=== PATIENT | female | born 2000 | race Asian ===

== ENCOUNTER 2025-03-21 11:43 | Emergency (ER) | payer OTHER, SELFPAY ==
[2025-03-21 11:45] VITALS: BP 106/69; PULSE 80; RESP 16; TEMP 36.4; O2SAT 100; BMI 18.1
[2025-03-21 12:25] LABS: UR Morphine/Opiate cutoff 300 Negative (Negative); Ur Creatinine Normal (Normal); Ur Specific Gravity Normal (Normal); Urine Amphetamines Negative (Negative); Urine Barbiturates Negative (Negative); Urine Benzodiazepines Negative (Negative); Urine Cocaine Negative (Negative); Urine MDMA Negative (Negative); Urine Methadone Negative (Negative); Urine Methamphetamines Negative (Negative); Urine Oxycodone Negative (Negative); Urine Phencyclidine Negative (Negative); Urine Tetrahydrocannabinol Negative (Negative); Urine Tricyclic Antidepressant Negative (Negative); Urine pH Normal (Normal)
[2025-03-21 12:26] LABS: Urine Volume 10mL (spun)
[2025-03-21 12:27] LABS: Add Manual Diff / Slide Review NO; Basophils Absolute Auto 100 /uL (0-100); Basophils Percent Auto 0.9 % (0-2); Eosinophils Absolute Auto 0 /uL (0-450); Eosinophils Percent Auto 0.4 % (2-4); Hematocrit 43.3 % (36-46); Hemoglobin 14.9 g/dL (12.0-16.0); Lymphocytes Absolute Auto 2000 /uL (1100-4500); Lymphocytes Percent Auto 33.1 % (25-40); Mean Corpuscular HGB Conc 34.4 % (30-36); Mean Corpuscular Hemoglobin 30.3 PG (26-34); Mean Corpuscular Volume 88.2 fL (80-100); Monocytes Absolute Auto 200 /uL (0-900); Monocytes Percent Auto 3.8 % (3-14); Neutrophils Absolute Auto 3700 /uL (1500-7000); Neutrophils Percent Auto 61.8 % (50-75); Platelet Count 354 X10^3/uL (150-400); Red Blood Cell Count 4.91 X10^6/uL (4.0-5.2); Red Cell Distribution Width 12.5 % (11.6-14.8)
[2025-03-21 12:29] LABS: Bacteria Urine None Seen; RBC Urine 0-1/HPF (0-5/HPF); Squamous Epithelial Cell Urine 0-1 /HPF (0-5/HPF); WBC Urine None Seen (0-5/HPF)
[2025-03-21 12:30] LABS: Culture Indicated Urine Cult Not Indicated
--- NOTE | 2025-03-21 12:31 | ED_ITS ---
HPI - Psych General Chief Complaint: Psychiatric Symptoms Stated Complaint: SI Time Seen by Provider: 03/21/25 12:21 Source: patient Mode of arrival: EMS History of Present Illness HPI Narrative: 24-year-old female history of PCOS presents with evaluation for possible suicidal attempt after taking 5 Vistaril pills last evening as she is currently under stress for being accused of being a spy in the [place]. Patient reports having difficulty sleeping and the instructions on the bottle is to take maximal of 3 and she took 5. She states that ever since she was accused of being us by a few months ago after being interrogated in a small room she has been having trouble sleeping and has been binge eating. Patient denies wanting to hurt anybody or seeing things or hearing voices. She has never been hospitalized for any mental health disorder in the past. Other than what is stated 14 point review of system is negative. Related Data Allergies Allergy/AdvReac Type Severity Reaction Status Date / Time No Known Drug Allergies Allergy Verified 03/21/25 11:55 Review of Systems Review of Systems ROS Unobtainable: All systems reviewed & are unremarkable except as noted in HPI and below Patient History Social History Smoking Status: Current some day smoker Smoking Status: Current some day smoker tobacco type: vaping Exam Narrative Exam Narrative: GENERAL: [24] year old patient appears stated age. Well-developed patient, in mild distress. HEAD: Atraumatic. Normocephalic. EYES: Pupils equal round and reactive. Extraocular motions intact. No scleral icterus. No injection or drainage. ENT: Nose without bleeding, purulent drainage. Throat without erythema, tonsillar hypertrophy or exudate. Airway patent. NECK: Trachea midline. Non tender CARDIOVASCULAR: Regular rate and rhythm without murmurs, gallops, or rubs. RESPIRATORY: Clear to auscultation. Breath sounds equal bilaterally. No wheezes, rales, or rhonchi. GASTROINTESTINAL: Abdomen soft, non-tender, nondistended. EXTREMITIES: No edema or joint tenderness. BACK: Nontender without deformity or crepitance. No flank tenderness. NEURO: AOx3. SKIN: No rash or erythema of visible areas Initial Vital Signs Initial Vital Signs: Vital Signs Temperature 97.6 F 03/21/25 11:45 Pulse Rate 80 03/21/25 11:45 Respiratory Rate 16 03/21/25 11:45 Blood Pressure 106/69 03/21/25 11:45 Pulse Oximetry 100 03/21/25 11:45 Oxygen Delivery Method Room Air 03/21/25 11:45 Psych Appearance: grossly normal Mental Status: mental status grossly normal Speech and Movement: speech and movement normal Affect: sad Attitude: cooperative Thought Process: normal Thought Content: suicidality Judgment: poor Course Orders Ordered: ED Orders 03/21/25 11:55 Consult to INDUSTRIAL [employer] MANAGER - Box Toe Flanger [place] Stat 03/21/25 12:00 Urine Drug Screen, Rapid Stat Urine Microscopic Stat 03/21/25 12:13 EKG-12 Lead Stat 03/21/25 12:20 Acetaminophen Stat Complete Blood Count AUTO DIFF Stat Comprehensive Metabolic Panel Stat Ethanol (ETOH) Stat Free T4, Direct Thyroxine Stat Salicylate Stat Thyroid Stimulating Hormone Stat Vital Signs Vital signs: Vital Signs - 8 hr 03/21/25 11:45 Temperature 97.6 F Pulse Rate 80 Respiratory Rate 16 Blood Pressure 106/69 Pulse Oximetry 100 Oxygen Delivery Method Room Air MDM - Psych Lab Data 03/21/25 12:20 03/21/25 12:20 Labs: Lab Results 03/21/25 03/21/25 Range/Units 12:00 12:20 WBC 6.0 (4.5-11.0) X10^3/uL RBC 4.91 (4.0-5.2) X10^6/uL Hgb 14.9 (12.0-16.0) g/dL Hct 43.3 (36-46) % MCV 88.2 (80-100) fL MCH 30.3 (26-34) PG MCHC 34.4 (30-36) % RDW 12.5 (11.6-14.8) % Plt Count 354 (150-400) X10^3/uL Neut % (Auto) 61.8 (50-75) % Lymph % (Auto) 33.1 (25-40) % [place] % (Auto) 3.8 (3-14) % Eos % (Auto) 0.4 L (2-4) % Baso % (Auto) 0.9 (0-2) % Neut # (Auto) 3700 (8056-1225) /uL Lymph # (Auto) 2000 (1242-0373) /uL [place] # (Auto) 200 (0-900) /uL Eos # (Auto) 0 (0-450) /uL Baso # (Auto) 100 (0-100) /uL Sodium 137 (137-145) mmol/L Potassium 3.6 (3.4-5.1) mmol/L Chloride 101 (98-107) mmol/L Carbon Dioxide 23 (22-32) mmol/L BUN 17 (7-17) mg/dL Creatinine 0.87 (0.52-1.04) mg/dL Estimated GFR > 60 (>60) mL/min BUN/Creatinine Ratio 19.5 (6-22) Glucose 85 (70-99) mg/dL Calcium 9.8 (8.4-10.2) mg/dL Total Bilirubin 0.9 (0.2-1.3) mg/dL AST 44 H (14-36) IU/L ALT 41 H (<35) IU/L Alkaline Phosphatase 42 (38-126) U/L Total Protein 8.7 H (6.3-8.2) g/dL Albumin 5.1 H (3.5-5.0) g/dL Globulin 3.6 (1.7-4.1) g/dL Albumin/Globulin Ratio 1.4 (1.0-2.8) TSH 1.52 (0.47-4.68) uIU/mL Free T4 1.25 (0.78-2.19) ng/dL Urine RBC 0-1/hpf (0-5/HPF) Urine WBC None seen (0-5/HPF) Ur Squamous Epith Cells 0-1 /hpf (0-5/HPF) Urine Bacteria None seen (None) Ur Culture Indicated? Cult not indicated Vol Urine Centrifuged 10ml (spun) Salicylates < 1.0 (<20) mg/dL U Opiates 300ng/mL cut Negative (Negative) Ur Oxycodone Screen Negative (Negative) Urine Methadone Screen Negative (Negative) Acetaminophen < 10 (10-30) ug/mL Ur Barbiturates Screen Negative (Negative) U Tricyclic Antidepress Negative (Negative) Ur Phencyclidine Scrn Negative (Negative) Ur Amphetamines Screen Negative (Negative) U Methamphetamines Scrn Negative (Negative) Ur MDMA Scrn (Ecstasy) Negative (Negative) U Benzodiazepines Scrn Negative (Negative) Urine Cocaine Screen Negative (Negative) U Marijuana (THC) Screen Negative (Negative) Urine pH Normal (Normal) Urine Specific [place] Normal (Normal) Ethyl Alcohol < 10 ( - 10) mg/dL Ur Creatinine Normal (Normal) Point of Care Testing Test Results Negative Urine Dip Bedside Urine Glucose Negative Bedside Urine Bilirubin - Negative Bedside Urine Ketone + 15 Urine Specific [place] 1.005 Bedside Urine Occult Blood + Bedside Urine pH 6.0 Bedside Urine Protein - Negative Bedside Urine Urobilinogen - Negative Bedside Urine Nitrite - Negative Bedside Urine Leukocytes - Negative Esterase ECG Data Attestation: I personally reviewed and interpreted this ECG as follows: Interpretation: NSR HR 73 OH 150 QRS [address]-t wave change No previous EKG to compare against MDM Narrative Medical decision making narrative: All lab work, vital signs, nurse triage note, medication list, and all previous ER visits reviewed. Patient is medically cleared and stable for transfer after speaking with who has graciously accepted pt for transfer. Differential diagnosis includes suicidal attempt, ideation, anxiety, depression, PTSD, stress disorder. Discharge Plan Departure Patient Disposition: Xfer Psychiatric Hosp Clinical Impression: Suicidal ideation Referrals: ProviderKristin [Primary Care Provider] -
--- NOTE | 2025-03-21 12:34 | CM.SWNOTE ---
ED TRIMMER AND REINFORCER Assessment TRIMMER AND REINFORCER - Financial Planning Adviser Assessment TRIMMER AND REINFORCER/Financial Planning Adviser Assessment Time Spent with Patient Start date 03/21/25 Visit Start Time 11:40 End date 03/21/25 Visit End Time 11:55 Total time Care Management spent on 15 minutes patient visit-in minutes Mental Health Screening Include Onset, Duration, Intensity Presenting Problem Patient presents to ED via [facility] due to concern for SI . It is reported that patient took 5 Hydroxyzine 25 mg tablets in attempt to kill self. Patient states I thought the only way to sleep is to kill myself. Patient endorses she had thoughts of taking the whole bottle of pills last night but stopped herself. Patient endorses she is not able to sleep at night and experiences SI constantly . Patient states she is worried if she goes home she will kill herself. Patient is voluntary for inpatient hospitalization. Patient's outpatient team recommended that patient present to the ED to seek higher level of care. Precipitating Event(s) Patient reports that she is under [employer] investigation, patient endorses she is innocent and states that the are accusing patient of being a spy. Patient endorses that she doesn't trust anyone and does not have any supports she can talk to. Patient's family lives in [place] and patient states she does not think she can talk to her parents because they are having health issues. Patient Strengths Patient is seeking help, patient has outpatient providers. Current Behavioral Health Provider(s) Patient sees Psychiatrist Dr. Mainor Alston, Provider, Ph. # [facility] at [facility] (Ph. # [phone]) Patient also sees therapist at [facility]. Patient states that her mental health providers are the only people she talks to about her MH. Psych. Hx Mental Health and Chemical Patient has hx of SI, Dependency Depression and Suicide attempt . Patient endorses Nicotine vape use, patient denies the use of any other substances. Family Hx of Behavioral Abuse None reported Psychiatric Hospitalizations (date(s)/ No hx. 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 Patient denies any supports. Patient states she lives with a roommate but she does not talk to roommate. 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 Legal Concerns Legal Matters - Outstanding Issues Patient endorses she is under investigation with [employer]. Mental Status Orientation (Person/Place/Time) A/Ox4 Stated Mood fine Affect (Congruent with Mood?) flat, dysthymic, not congruent with mood. Thought Content - Specify/Describe Patient endorses that she Obsessions, Delusions, Hallucinations hears voices of the investigators asking her questions. Patient denies visual hallucinations. Thought Processes (Zhwgqfo-Fflsubri-Znfm coherent Wmvjrphy-Ypuspxrt-Fzewewamue- Yrlgzlecoispgg-Drgjcyq-Uteyybbzcukm- Thought Blocking) Speech (Zukowe-Wuuu-Hqbuwkz-Rapid-Soft- soft/normal Loud-Pressured) Motor (Ncnhpc-Vbcrngyyi-Zoer-Other) normal Insight (Cgjr-Wfvh-Ctbk/Limited) fair Judgement (Mone-Fiuc-Evma/Limited) fair Impulse Control (Adequate-Impaired) adequate Memory (Reivcjqcy-Rvpbww-Guwflt, intact, not formally assessed Impaired-Intact) Concentration (Intact-Impaired) intact Attention (Intact-Impaired) intact Behavior (Appropriate-Inappropriate) appropriate Additional Comment Patient presents as polite, cooperative, calm and communicative. Risk Assessment Suicidal Ideation (Plan) Yes Homicidal Ideation (Plan) No Comment Patient endorses concerns for SI, patient endorses she has been experiencing constant SI. Patient states that last night she took 5 hydroxyzine 25 mg tablets and had thoughts of taking the whole bottle of pills but stopped herself. Patient endorses concern that if she goes home she will attempt to kill herself with plans of overdosing on pills. Patient endorses that she has taken more than prescribed in the past in efforts to sleep, patient states she is not able to sleep. Patient denies HI. Intervention Intervention TRIMMER AND REINFORCER enters triage to meet with patient, present in triage is a&p mechanic. Patient endorses concern for constant SI and suicide attempt last night. Patient endorses significant life stressors impacting her daily, patient endorses she is not able to talk to anyone or trust anyone. Patient is voluntary for inpatient hospitalization. It is the opinion of this TRIMMER AND REINFORCER that patient is appropriate for and would benefit from voluntary inpatient hospitalization for safety, crisis stabilization and medication management. TRIMMER AND REINFORCER reviews this with ED provider Dr. Srinivasan who indicates agreement and understanding. Plan RA Plan TRIMMER AND REINFORCER to seek voluntary inpatient hospitalization for patient at [facility] upon medical clearance. LIZABETH Marrero
--- NOTE | 2025-03-21 12:36 | EKG_ITS ---
[address] [address] Test Date: 2025-03-21 Pat Name: Ana Harden Department: [facility] Room: Gender: Female Meeting Coordinator: : 2000 Requested By: Order Number: [id number] Reading MD: Demetrio Thorpe Measurements Intervals [place] Rate: 73 P: 80 VT: 150 QRS: 77 QRSD: 86 T: 58 QT: 380 QTc: 418 Interpretive Statements Normal sinus rhythm Electronically Signed On 03-22-2025 17:39:43 PDT by Demetrio Thorpe
[2025-03-21 12:47] LABS: Acetaminophen < 10 ug/mL (10-30); Alanine Aminotransferase 41 IU/L (<35); Albumin 5.1 g/dL (3.5-5.0); Albumin Globulin Ratio 1.4 (1.0-2.8); Alkaline Phosphatase 42 U/L (38-126); Aspartate Aminotransferase 44 IU/L (14-36); BUN Creatinine Ratio 19.5 (6-22); Bilirubin Total 0.9 mg/dL (0.2-1.3); Blood Urea Nitrogen 17 mg/dL (7-17); Calcium 9.8 mg/dL (8.4-10.2); Carbon Dioxide 23 mmol/L (22-32); Chloride 101 mmol/L (98-107); Estimated Glomerular Filt Rate > 60 mL/min (>60); Ethanol (ETOH) < 10 mg/dL; Globulin 3.6 g/dL (1.7-4.1); Glucose 85 mg/dL (70-99); HEMOLYSIS < 15 (0-50); Potassium 3.6 mmol/L (3.4-5.1); Salicylate < 1.0 mg/dL (<20); Sodium 137 mmol/L (137-145); Total Protein 8.7 g/dL (6.3-8.2)
[2025-03-21 13:03] LABS: Free T4, Direct Thyroxine 1.25 ng/dL (0.78-2.19)
[2025-03-21 13:17] LABS: Thyroid Stimulating Hormone 1.52 uIU/mL (0.47-4.68)
--- NOTE | 2025-03-21 14:13 | CM.SWNOTE ---
ED FOREST BOTANY INSTRUCTOR Note FOREST BOTANY INSTRUCTOR calls [facility], it is reported that they have beds and can review patient. FOREST BOTANY INSTRUCTOR faxes clinicals. It is reported by Dru Díaz that Dr. Kasper has accepted patient in the unit ([address] [place] [address]) Patient can arrive at any time. RN to RN # is [phone]. FOREST BOTANY INSTRUCTOR calls [facility], it is reported that they can arrive at 1615, FOREST BOTANY INSTRUCTOR calls [facility], it is reported that they can arrive at 1530- FOREST BOTANY INSTRUCTOR schedules transport with [facility]. FOREST BOTANY INSTRUCTOR informs [facility] of patient's transport and ETA. FOREST BOTANY INSTRUCTOR informs patient of POC and she indicates agreement and understanding. Plan: patient to transfer to [facility] unit [address] [place] [address] for voluntary inpatient hospitalization via BLS. BRENDA MarreroSW
[2025-03-21 15:17] VITALS: BP 97/68; PULSE 78; RESP 16; O2SAT 99
== END 2025-03-21 15:51 ==
PROVIDERS: Emergency Provider Family Medicine
DX: R45.851 Suicidal ideations (principal)
CPT/HCPCS: 36415; 80053; 80305; 80320; 80329; 81003; 81015; 81025; 84439; 84443; 85025; 93005; 99284; G0480